=== PATIENT | male | born 1935 | race Caucasian/White ===

== ENCOUNTER 2024-08-29 12:02 | Inpatient (IN) | payer OTHER ==
[~2024-08-29] VITALS: Ht 175.3 cm; Wt 53.1 kg
[2024-08-29 12:31] LABS: BASOPHILS # (AUTO) 0.1 K/uL (0.0-0.2); BASOPHILS % (AUTO) 0.9 % (0.0-2.0); EOSINOPHILS # (AUTO) 0.2 K/uL (0.0-0.7); EOSINOPHILS % (AUTO) 2.2 % (0.0-6.0); HEMATOCRIT 29 % (39-51); HEMOGLOBIN 9.5 g/dL (13.5-17.5); LYMPHOCYTES # (AUTO) 2.6 K/uL (0.8-4.8); LYMPHOCYTES % (AUTO) 37.1 % (20.0-44.0); MEAN CORPUSCULAR HEMOGLOBIN 31 PG (26.0-33.0); MEAN CORPUSCULAR HGB CONC 33 g/dl (31.0-36.0); MEAN CORPUSCULAR VOLUME 92 fL (80-96); MONOCYTES # (AUTO) 0.6 K/uL (0.1-1.30); MONOCYTES % (AUTO) 8.2 % (2.0-12.0); NEUTROPHILS # (AUTO) 3.7 K/uL (1.8-8.9); NEUTROPHILS % (AUTO) 51.6 % (43.0-81.0); PLATELET COUNT (AUTO) 320 K/uL (150-450); RED BLOOD CELL COUNT(AUTO) 3.11 MIL/uL (4.5-6.0); RED CELL DISTRIBUTION WIDTH 16.4 % (11.5-15.0); WHITE BLOOD COUNT (AUTO) 7.1 K/uL (4.3-11.0)
[2024-08-29 12:55] LABS: CALCIUM, SERUM 7.9 mg/dL (8.5-10.1); CREATININE 0.7 mg/dL (0.6-1.3)
[2024-08-29 13:12] LABS: ALBUMIN 1.5 g/dL (3.4-5.0); BILIRUBIN,DIRECT 0.2 mg/dL (0.0-0.2); BILIRUBIN,TOTAL 0.5 mg/dL (0.2-1.0); TOTAL PROTEIN, SERUM 5.9 g/dL (6.4-8.2)
[2024-08-29] MEDS ORDERED: MAGN400O6 PO (13:33)
[2024-08-29] MEDS ORDERED: CALC-494 PO (13:33)
[2024-08-29] MEDS ORDERED: MELA3TAB41 PO (13:33)
[2024-08-29] MEDS ORDERED: NA P133E RC (13:33)
[2024-08-29] MEDS ORDERED: A/C/1TAB3 PO (13:33)
[2024-08-29] MEDS ORDERED: FLUT16SP BNOSTRILS (13:33)
[2024-08-29] MEDS ORDERED: SIMV-49 PO (13:33)
[2024-08-29] MEDS ORDERED: ACET-73 PO (13:33)
[2024-08-29] MEDS ORDERED: MIRT7.5T10 PO (13:33)
[2024-08-29] MEDS ORDERED: BISA10SU11 RC (13:33)
[2024-08-29] MEDS ORDERED: ASPI-1169 PO (13:33)
[2024-08-29] MEDS ORDERED: TRAM50TA2 PO (13:33)
[2024-08-29] MEDS ORDERED: ASCO500T10 PO (13:33)
[2024-08-29] MEDS ORDERED: ENOX40DI SQ (13:33)
[2024-08-29] MEDS ORDERED: SENN-261 PO (13:33)
[2024-08-29] MEDS ORDERED: ACET325T53 PO (13:33)
[2024-08-29] MEDS ORDERED: AMIN30LI27 PO (13:33)
[2024-08-29] MEDS ORDERED: CHOL200059 PO (13:33)
[2024-08-29 16:00] VITALS: BP 130/89; TEMP 97.3; O2SAT 95
[2024-08-29] MEDS: POTASSIUM CHLORIDE 20 MEQ TAB.PRT.SR PO SCH (16:11)
[2024-08-29] MEDS ORDERED: ONDANSETRON HCL/PF 4 MG/2 ML VIAL IVP PRN (16:30)
[2024-08-29] MEDS ORDERED: MAG HYDROX/AL HYDROX/SIMETH 30 ML UDC PO PRN (16:30)
[2024-08-29] MEDS ORDERED: MAGNESIUM HYDROXIDE 30 ML UDC PO PRN (16:30)
[2024-08-29] MEDS ORDERED: ACETAMINOPHEN 325 MG TABLET PO PRN (16:30)
[2024-08-29] MEDS ORDERED: MORPHINE SULFATE INJ 2 MG/ML DISP.SYRIN IV PRN (16:30)
[2024-08-29] MEDS ORDERED: NITROGLYCERIN 0.4 MG/TAB BOTTLE SL PRN (16:30)
[2024-08-29] MEDS: ASPIRIN EC 81 MG TABLET.DR PO SCH (16:38)
[2024-08-29] MEDS: ENOXAPARIN SODIUM 40 MG/0.4 ML DISP.SYRIN SQ SCH (16:38)
[2024-08-29 18:41] LABS: THYROID STIMULATING HORMONE 9.49 uIU/mL (0.358-3.74)
[2024-08-29 20:00] VITALS: BP 150/87; TEMP 97.5; O2SAT 95
[2024-08-29 20:34] VITALS: BP 150/87; TEMP 97.5; O2SAT 95
[2024-08-30] VITALS (8 sets, daily range): BP systolic 124–138; BP diastolic 70–81; TEMP 97–98.4; O2SAT 95–100
[2024-08-30] MEDS: PANTOPRAZOLE 40 MG TABLET.DR PO SCH (06:51)
[2024-08-30 07:16] LABS: BASOPHILS % (AUTO) 0.7 % (0.0-2.0); EOSINOPHILS # (AUTO) 0.2 K/uL (0.0-0.7); EOSINOPHILS % (AUTO) 3.6 % (0.0-6.0); HEMATOCRIT 24 % (39-51); HEMOGLOBIN 8.6 g/dL (13.5-17.5); LYMPHOCYTES # (AUTO) 1.7 K/uL (0.8-4.8); LYMPHOCYTES % (AUTO) 31.4 % (20.0-44.0); MEAN CORPUSCULAR HEMOGLOBIN 32 PG (26.0-33.0); MEAN CORPUSCULAR HGB CONC 35 g/dl (31.0-36.0); MEAN CORPUSCULAR VOLUME 92 fL (80-96); MONOCYTES # (AUTO) 0.5 K/uL (0.1-1.30); MONOCYTES % (AUTO) 9.8 % (2.0-12.0); NEUTROPHILS % (AUTO) 54.5 % (43.0-81.0); PLATELET COUNT (AUTO) 268 K/uL (150-450); RED BLOOD CELL COUNT(AUTO) 2.64 MIL/uL (4.5-6.0); RED CELL DISTRIBUTION WIDTH 16.3 % (11.5-15.0); WHITE BLOOD COUNT (AUTO) 5.5 K/uL (4.3-11.0)
[2024-08-30 09:08] LABS: CREATININE 0.6 mg/dL (0.6-1.3); MAGNESIUM 1.6 mg/dL (1.8-2.4); PHOSPHORUS 3.3 mg/dL (2.5-4.9); POTASSIUM 3.1 mmol/L (3.5-5.1)
[2024-08-30] MEDS: Magnesium 1GM/D5W 100ML PREMIX 100 ML IV SCH (10:15)
[2024-08-30 12:18] LABS: THYROID STIMULATING HORMONE 7.64 uIU/mL (0.358-3.74)
[2024-08-30] MEDS: POTASSIUM CHLORIDE 20 MEQ TAB.PRT.SR PO ONE (13:34)
[2024-08-31 08:00] VITALS: BP 119/84; TEMP 97.5; O2SAT 100
[2024-08-31] MEDS ORDERED: BISACODYL SUPP (10 MG) 10 MG/SUPP.RECT SUPP.RECT RC PRN (12:00)
[2024-08-31] MEDS ORDERED: NA PHOS,M-B/NA PHOS,DI-BA 1 EA ENEMA RC PRN (12:00)
[2024-08-31] MEDS ORDERED: HOME MED MISCELLANEOUS XX SCH (12:00)
[2024-08-31] MEDS: IV 1/2NS 1000 ML 1,000 ML IV PRN (13:29)
[2024-08-31] MEDS: SOD FERRIC GLUC 125 MG in IV NS 0.9% 100 ML IV SCH (14:37)
[2024-08-31] MEDS: Z GUARD REMEDY 4 OZ OINT TP PRN (14:59)
[2024-08-31 15:02] LABS: BASOPHILS % (AUTO) 0.5 % (0.0-2.0); EOSINOPHILS # (AUTO) 0.1 K/uL (0.0-0.7); EOSINOPHILS % (AUTO) 1.3 % (0.0-6.0); HEMATOCRIT 26 % (39-51); HEMOGLOBIN 8.8 g/dL (13.5-17.5); LYMPHOCYTES # (AUTO) 1.7 K/uL (0.8-4.8); LYMPHOCYTES % (AUTO) 22.8 % (20.0-44.0); MEAN CORPUSCULAR HEMOGLOBIN 31 PG (26.0-33.0); MEAN CORPUSCULAR HGB CONC 34 g/dl (31.0-36.0); MEAN CORPUSCULAR VOLUME 92 fL (80-96); MONOCYTES # (AUTO) 0.6 K/uL (0.1-1.30); MONOCYTES % (AUTO) 7.6 % (2.0-12.0); NEUTROPHILS # (AUTO) 5.2 K/uL (1.8-8.9); NEUTROPHILS % (AUTO) 67.8 % (43.0-81.0); PLATELET COUNT (AUTO) 317 K/uL (150-450); RED BLOOD CELL COUNT(AUTO) 2.85 MIL/uL (4.5-6.0); RED CELL DISTRIBUTION WIDTH 15.9 % (11.5-15.0); WHITE BLOOD COUNT (AUTO) 7.6 K/uL (4.3-11.0)
[2024-08-31] MEDS: TRAMADOL HCL 50 MG TABLET PO PRN (15:15)
[2024-08-31 15:17] LABS: BILIRUBIN,TOTAL 0.3 mg/dL (0.2-1.0); CALCIUM, SERUM 8.1 mg/dL (8.5-10.1); CREATININE 0.7 mg/dL (0.6-1.3); MAGNESIUM 1.7 mg/dL (1.8-2.4); PHOSPHORUS 2.5 mg/dL (2.5-4.9); POTASSIUM 4.8 mmol/L (3.5-5.1); TOTAL PROTEIN, SERUM 5.4 g/dL (6.4-8.2)
[2024-08-31 15:21] LABS: ALBUMIN 1.3 g/dL (3.4-5.0)
[2024-08-31 16:00] VITALS: BP 145/88; TEMP 97.7; O2SAT 100
[2024-08-31] MEDS: ASCORBIC ACID 500 MG TABLET PO SCH (18:33)
[2024-08-31] MEDS: PROSOURCE / PROSTAT (PYXIS) 30 ML UDC PO SCH (18:33)
[2024-08-31] MEDS: ASPIRIN 81 MG TAB.CHEW PO SCH (18:33)
[2024-08-31 20:00] VITALS: BP 121/66; TEMP 97.9; O2SAT 100
[2024-08-31] MEDS ORDERED: MINERAL OIL/PETROLATUM,WHITE 120 GM JAR TP PRN (20:00)
[2024-08-31] MEDS: SIMVASTATIN 20 MG TABLET PO SCH (21:29)
[2024-08-31] MEDS: MIRTAZAPINE 15 MG TABLET PO SCH (21:29)
[2024-08-31] MEDS: SENNOSIDES 8.6 MG TABLET PO SCH (21:29)
[2024-09-01] VITALS: BP 117/65; TEMP 97.9; O2SAT 100
[2024-09-01 04:00] VITALS: BP 138/79; TEMP 97.7; O2SAT 100
[2024-09-01 07:00] VITALS: BP 119/82; TEMP 97.5; O2SAT 100
[2024-09-01 07:38] LABS: BASOPHILS % (AUTO) 0.5 % (0.0-2.0); EOSINOPHILS # (AUTO) 0.2 K/uL (0.0-0.7); EOSINOPHILS % (AUTO) 3.2 % (0.0-6.0); HEMATOCRIT 27 % (39-51); HEMOGLOBIN 8.7 g/dL (13.5-17.5); LYMPHOCYTES # (AUTO) 2.2 K/uL (0.8-4.8); LYMPHOCYTES % (AUTO) 29.4 % (20.0-44.0); MEAN CORPUSCULAR HEMOGLOBIN 31 PG (26.0-33.0); MEAN CORPUSCULAR HGB CONC 33 g/dl (31.0-36.0); MEAN CORPUSCULAR VOLUME 94 fL (80-96); MONOCYTES # (AUTO) 0.6 K/uL (0.1-1.30); MONOCYTES % (AUTO) 7.9 % (2.0-12.0); NEUTROPHILS # (AUTO) 4.4 K/uL (1.8-8.9); PLATELET COUNT (AUTO) 277 K/uL (150-450); RED BLOOD CELL COUNT(AUTO) 2.85 MIL/uL (4.5-6.0); RED CELL DISTRIBUTION WIDTH 16.4 % (11.5-15.0); WHITE BLOOD COUNT (AUTO) 7.4 K/uL (4.3-11.0)
[2024-09-01 08:09] LABS: BILIRUBIN,TOTAL 0.3 mg/dL (0.2-1.0); CALCIUM, SERUM 7.7 mg/dL (8.5-10.1); CREATININE 0.6 mg/dL (0.6-1.3); MAGNESIUM 1.9 mg/dL (1.8-2.4); PHOSPHORUS 2.5 mg/dL (2.5-4.9); POTASSIUM 4.1 mmol/L (3.5-5.1); TOTAL PROTEIN, SERUM 5.4 g/dL (6.4-8.2)
[2024-09-01 08:20] LABS: ALBUMIN 1.2 g/dL (3.4-5.0)
[2024-09-01] MEDS: FLUTICASONE PROPIONATE 16 GM BOTTLE NS SCH (08:32)
[2024-09-01] MEDS: CALCIUM CARBONATE 500 MG TAB.CHEW PO SCH (08:33)
[2024-09-01] MEDS: CHOLECALCIFEROL 1,000 UNIT TABLET (VIT D3) PO SCH (08:34)
[2024-09-01 16:00] VITALS: BP 142/78; TEMP 97.9; O2SAT 100
[2024-09-01 20:00] VITALS: BP 112/67; TEMP 97.9; O2SAT 100
[2024-09-01 23:17] VITALS: BP 112/67; TEMP 97.9; O2SAT 100
[2024-09-02 07:00] VITALS: BP 140/84; TEMP 97.5; O2SAT 100
[2024-09-02 16:00] VITALS: BP 138/75; TEMP 97.7; O2SAT 100
== END 2024-09-02 18:00 | DRG 204 ==
LOC: ER 12:07 → TELE 15:00 → MED 09-01 06:24
PROVIDERS: ATTEND Nurse Practitioner Acute Care
DX: R07.81 Pleurodynia (principal); E43 Unspecified severe protein-calorie malnutrition; R64 Cachexia; Z68.1 Body mass index [BMI] 19.9 or less, adult; N17.9 Acute kidney failure, unspecified; D64.9 Anemia, unspecified; Z20.822 Contact with and (suspected) exposure to COVID-19; I10 Essential (primary) hypertension; I27.20 Pulmonary hypertension, unspecified; F39 Unspecified mood [affective] disorder; E78.5 Hyperlipidemia, unspecified; E83.42 Hypomagnesemia; Z96.641 Presence of right artificial hip joint; Z88.8 Allergy status to other drugs, medicaments and biological substances; R26.9 Unspecified abnormalities of gait and mobility; Z79.51 Long term (current) use of inhaled steroids; Z79.899 Other long term (current) drug therapy; Z79.01 Long term (current) use of anticoagulants; Z79.82 Long term (current) use of aspirin; E87.6 Hypokalemia; E88.09 Other disorders of plasma-protein metabolism, not elsewhere classified; Z86.79 Personal history of other diseases of the circulatory system; I70.0 Atherosclerosis of aorta; R60.9 Edema, unspecified; D63.8 Anemia in other chronic diseases classified elsewhere
CPT/HCPCS: 36415; 71045-TC; 80048-TC; 80053-TC; 80061-TC; 80076-TC; 82728-TC; 83540-TC; 83605-TC; 83735-TC; 83880; 84100-TC; 84439-TC; 84443-TC; 84484-TC; 85025-TC; 87040-TC; 93307-TC; 97110-TC; 97164; 97530-TC; 97535-TC; A4223; G0378; J1650; J2916; J3475; J3490; J7030; J7050

== ENCOUNTER 2024-09-08 11:47 | Inpatient (IN) | payer OTHER ==
[~2024-09-08] VITALS: Ht 182.9 cm; Wt 58.1 kg
[~2024-09-08 11:47] MED LIST: A/C/1TAB3 PO; ACET-73 PO; ACET325T53 PO; AMIN30LI27 PO; ASCO500T10 PO; ASPI-1169 PO; BISA10SU11 RC; CALC-494 PO; CHOL200059 PO; ENOX40DI SQ; FLUT16SP BNOSTRILS; MAGN400O6 PO; MELA3TAB41 PO; MIRT7.5T10 PO; NA P133E RC; SENN-261 PO; SIMV-49 PO; TRAM50TA2 PO
[2024-09-08 14:38] LABS: BASOPHILS % (AUTO) 0.8 % (0.0-2.0); EOSINOPHILS % (AUTO) 0.2 % (0.0-6.0); HEMATOCRIT 29 % (39-51); HEMOGLOBIN 9.6 g/dL (13.5-17.5); LYMPHOCYTES # (AUTO) 0.6 K/uL (0.8-4.8); LYMPHOCYTES % (AUTO) 14.1 % (20.0-44.0); MEAN CORPUSCULAR HEMOGLOBIN 31 PG (26.0-33.0); MEAN CORPUSCULAR HGB CONC 34 g/dl (31.0-36.0); MEAN CORPUSCULAR VOLUME 92 fL (80-96); MONOCYTES # (AUTO) 0.3 K/uL (0.1-1.30); MONOCYTES % (AUTO) 6.8 % (2.0-12.0); NEUTROPHILS # (AUTO) 3.5 K/uL (1.8-8.9); NEUTROPHILS % (AUTO) 78.1 % (43.0-81.0); PLATELET COUNT (AUTO) 284 K/uL (150-450); RED CELL DISTRIBUTION WIDTH 16.5 % (11.5-15.0); WHITE BLOOD COUNT (AUTO) 4.5 K/uL (4.3-11.0)
[2024-09-08 14:49] LABS: INR 1.09 (0.91-1.10); PARTIAL THROMBOPLASTIN TIME 26.2 SEC (24.3-34.3); PROTHROMBIN TIME 11.5 SECS (9.2-11.1)
[2024-09-08 14:50] LABS: CALCIUM, SERUM 7.9 mg/dL (8.5-10.1); CREATININE 0.6 mg/dL (0.6-1.3); POTASSIUM 2.9 mmol/L (3.5-5.1)
[2024-09-08] MEDS ORDERED: BOOST VHC PO (14:55)
[2024-09-08] MEDS ORDERED: MULT-213 PO (14:55)
[2024-09-08] MEDS ORDERED: NITR0.4T48 SL (14:55)
[2024-09-08] MEDS ORDERED: CHOL100043 PO (14:55)
[2024-09-08] MEDS ORDERED: LEVO25TA2 PO (14:55)
[2024-09-08] MEDS ORDERED: APIX5TAB PO (14:55)
[2024-09-08] MEDS ORDERED: PANT40TA2 PO (14:55)
[2024-09-08] MEDS ORDERED: PHEN26CR2 RC (14:55)
[2024-09-08 14:56] LABS: LACTIC ACID 1.1 mmol/L (0.4-2.0)
[2024-09-08 15:03] LABS: ALBUMIN 1.6 g/dL (3.4-5.0); BILIRUBIN,DIRECT 0.3 mg/dL (0.0-0.2); BILIRUBIN,TOTAL 0.5 mg/dL (0.2-1.0); TOTAL PROTEIN, SERUM 6.1 g/dL (6.4-8.2)
[2024-09-08] MEDS ORDERED: MAG HYDROX/AL HYDROX/SIMETH 30 ML UDC PO PRN (15:30)
[2024-09-08] MEDS ORDERED: Z GUARD REMEDY 4 OZ OINT TP PRN (15:30)
[2024-09-08] MEDS ORDERED: MAGNESIUM HYDROXIDE 30 ML UDC PO PRN (15:30)
[2024-09-08] MEDS ORDERED: ALBUTEROL FS 2.5 MG/0.5 ML VIAL.NEB NEB PRN (15:30)
[2024-09-08] MEDS ORDERED: IPRATROPIUM NEB FS 0.5 MG/2.5 ML AMPUL.NEB NEB PRN (15:30)
[2024-09-08 15:48] LABS: APPEARANCE,URINE CLEAR (CLEAR); BILIRUBIN,URINE NEGATIVE (NEGATIVE); BLOOD, URINE NEGATIVE Ery/uL (NEGATIVE); COLOR,URINE YELLOW (YELLOW); KETONES,URINE TRACE mg/dL (NEGATIVE); LEUKOCYTE ESTERASE ,URINE NEGATIVE (NEGATIVE); NITRITE, URINE NEGATIVE (NEGATIVE); PH,URINE 5.5 (5.0-8.0); PROTEIN,URINE NEGATIVE (NEGATIVE); UGLUCOSE NEGATIVE (NEGATIVE)
[2024-09-08 16:07] LABS: RBC,URINE 0-2 /HPF (0-2)
[2024-09-08 16:08] LABS: ADD URINE CULTURE YES; BACTERIA,URINE Moderate /HPF (None Seen); WBC,URINE 0-2 /HPF (0-3)
[2024-09-08 16:09] LABS: URIC ACID CRYSTALS,URINE Few /HPF (None Seen)
[2024-09-08] MEDS: IV NS 0.9% 1,000 ML BAG IV ONE (16:10)
[2024-09-08] MEDS: KETOROLAC TROMETHAMINE 15 MG/ML VIAL IV ONE (16:11)
[2024-09-08] MEDS: PIPERACILLIN /TAZOBACTAM 3.375 G in IV D5W 50 ML IV ONE (16:12)
[2024-09-08] MEDS: VANCOMYCIN 1 GM in IV D5W 250 ML IV ONE (16:50)
[2024-09-08] MEDS ORDERED: ACETAMINOPHEN 325 MG TABLET ONE (17:34)
[2024-09-08] MEDS: ACETAMINOPHEN 325 MG TABLET PO ONE (17:40)
[2024-09-08 22:00] VITALS: BP 99/60; TEMP 97.7; O2SAT 94
[2024-09-08] MEDS ORDERED: POTASSIUM CHLORIDE 20 MEQ TAB.PRT.SR PO ONE (22:00)
[2024-09-08] MEDS ORDERED: PIPERACI/TAZO 3.375GM/D5W 50ML PB IV ONE (22:01)
[2024-09-08] MEDS: methylPREDNISolone SOD SUCC 125 MG/2ML VIAL IV SCH (22:07)
[2024-09-08] MEDS: ZOSYN IVPB 3.375 G in IV D5W 50ml IV SCH (22:08)
[2024-09-08] MEDS: ENOXAPARIN SODIUM 40 MG/0.4 ML DISP.SYRIN SQ SCH (22:09)
[2024-09-08] MEDS ORDERED: POTASSIUM CHLORIDE 10 MEQ/50 ML PREMIXED IVPB FOR PERIPHERAL LINE IV ONE (22:30)
[2024-09-08] MEDS: POTASSIUM CL. PREMIX PERIPHER. 50 ML IV SCH (23:15)
[2024-09-09] VITALS: BP 120/70; TEMP 97.7; O2SAT 96
[2024-09-09] MEDS: VANCOMYCIN 1 GM /D5W 250 ML PB IV ONE (04:13)
[2024-09-09] MEDS: VANCOMYCIN HCL 1.25 GM in IV D5W 250 ML IV SCH (04:22)
[2024-09-09] MEDS ORDERED: PIPERACI/TAZO 3.375GM/D5W 50ML PB IV ONE (04:39)
[2024-09-09 05:14] VITALS: BP 117/73; TEMP 97.5; O2SAT 95
[2024-09-09 07:15] LABS: BASOPHILS % (AUTO) 0.4 % (0.0-2.0); HEMATOCRIT 26 % (39-51); HEMOGLOBIN 8.6 g/dL (13.5-17.5); LYMPHOCYTES # (AUTO) 0.6 K/uL (0.8-4.8); LYMPHOCYTES % (AUTO) 23.6 % (20.0-44.0); MEAN CORPUSCULAR HEMOGLOBIN 31 PG (26.0-33.0); MEAN CORPUSCULAR HGB CONC 33 g/dl (31.0-36.0); MEAN CORPUSCULAR VOLUME 95 fL (80-96); MONOCYTES # (AUTO) 0.1 K/uL (0.1-1.30); MONOCYTES % (AUTO) 5.2 % (2.0-12.0); NEUTROPHILS # (AUTO) 1.8 K/uL (1.8-8.9); NEUTROPHILS % (AUTO) 70.8 % (43.0-81.0); PLATELET COUNT (AUTO) 221 K/uL (150-450); RED BLOOD CELL COUNT(AUTO) 2.74 MIL/uL (4.5-6.0); RED CELL DISTRIBUTION WIDTH 16.6 % (11.5-15.0); WHITE BLOOD COUNT (AUTO) 2.5 K/uL (4.3-11.0)
[2024-09-09 07:20] LABS: CALCIUM, SERUM 7.4 mg/dL (8.5-10.1); CREATININE 0.6 mg/dL (0.6-1.3); MAGNESIUM 1.7 mg/dL (1.8-2.4); PHOSPHORUS 3.5 mg/dL (2.5-4.9); POTASSIUM 3.4 mmol/L (3.5-5.1)
[2024-09-09] MEDS: PANTOPRAZOLE 40 MG TABLET.DR PO SCH (07:55)
[2024-09-09 08:00] VITALS: BP 102/73; TEMP 97.6; O2SAT 93
[2024-09-09 12:01] VITALS: BP 126/71; TEMP 98.1; O2SAT 93
[2024-09-09] MEDS ORDERED: POTASSIUM CHLORIDE 20 MEQ TAB.PRT.SR PO ONE (13:00)
[2024-09-09] MEDS: POTASSIUM CHLORIDE 20 MEQ POWDER PACKET PO SCH (13:07)
[2024-09-09] MEDS: MAGNESIUM OXIDE 400 MG TABLET PO ONE (13:07)
[2024-09-09 16:00] VITALS: BP 118/83; TEMP 98.4; O2SAT 95
[2024-09-09] MEDS ORDERED: IOHEXOL-300 100 ML VIAL IV ONE (16:38)
[2024-09-09] MEDS ORDERED: CT SWABBABLE VALVE TRANS SET 1 EA INFUS.SET MC ONE (16:38)
[2024-09-09] MEDS ORDERED: IV NS 0.9% 250 ML IV ONE (16:38)
[2024-09-09 20:00] VITALS: BP 131/82; TEMP 98.2; O2SAT 95
[2024-09-10] VITALS: BP 145/79; TEMP 97.2; O2SAT 100
[2024-09-10] MEDS: ACETAMINOPHEN 325 MG TABLET PO PRN (03:30)
[2024-09-10 04:00] VITALS: BP 116/79; TEMP 97.3; O2SAT 100
[2024-09-10 04:44] LABS: CALCIUM, SERUM 7.7 mg/dL (8.5-10.1); CREATININE 0.6 mg/dL (0.6-1.3); MAGNESIUM 1.7 mg/dL (1.8-2.4); POTASSIUM 3.9 mmol/L (3.5-5.1)
[2024-09-10 08:36] VITALS: BP 112/74; TEMP 97.8; O2SAT 93
[2024-09-10] MEDS ORDERED: IOHEXOL-300 100 ML VIAL IV ONE (08:59)
[2024-09-10] MEDS ORDERED: IV NS 0.9% 250 ML IV ONE (08:59)
[2024-09-10] MEDS ORDERED: CT SWABBABLE VALVE TRANS SET 1 EA INFUS.SET MC ONE (08:59)
[2024-09-10] MEDS: ENSURE ENLIVE CHOC 237 ML CAN PO SCH (12:03)
[2024-09-10] MEDS: PROSOURCE / PROSTAT (PYXIS) 30 ML UDC GT SCH (12:03)
[2024-09-10] MEDS: MAGNESIUM OXIDE 400 MG TABLET PO ONE (12:24)
[2024-09-10 12:33] VITALS: BP 132/74; TEMP 97.8; O2SAT 93
[2024-09-10 16:00] VITALS: BP 116/70; O2SAT 95
[2024-09-10] MEDS: VANCOMYCIN 750 MG in IV D5W 250 ML IV SCH (17:02)
[2024-09-10] MEDS: ASPIRIN 325 MG TABLET PO ONE (21:01)
[2024-09-10] MEDS: MORPHINE SULFATE INJ 2 MG/ML DISP.SYRIN IVP ONE (21:02)
[2024-09-10 22:03] VITALS: BP 113/77; TEMP 97.6; O2SAT 99
[2024-09-10] MEDS: ZOLPIDEM TARTRATE 5 MG TABLET PO PRN (23:09)
[2024-09-11] VITALS (8 sets, daily range): BP systolic 109–135; BP diastolic 67–86; TEMP 96–98.7; O2SAT 99–100
[2024-09-11 04:16] LABS: CALCIUM, SERUM 7.7 mg/dL (8.5-10.1); CREATININE 0.6 mg/dL (0.6-1.3); MAGNESIUM 1.8 mg/dL (1.8-2.4); POTASSIUM 3.8 mmol/L (3.5-5.1)
[2024-09-11 07:09] LABS: BASOPHILS % (AUTO) 0.2 % (0.0-2.0); HEMATOCRIT 21 % (39-51); LYMPHOCYTES # (AUTO) 1.1 K/uL (0.8-4.8); LYMPHOCYTES % (AUTO) 20.4 % (20.0-44.0); MEAN CORPUSCULAR HEMOGLOBIN 32 PG (26.0-33.0); MEAN CORPUSCULAR HGB CONC 34 g/dl (31.0-36.0); MEAN CORPUSCULAR VOLUME 95 fL (80-96); MONOCYTES # (AUTO) 0.2 K/uL (0.1-1.30); NEUTROPHILS # (AUTO) 3.9 K/uL (1.8-8.9); NEUTROPHILS % (AUTO) 75.4 % (43.0-81.0); PLATELET COUNT (AUTO) 274 K/uL (150-450); RED BLOOD CELL COUNT(AUTO) 2.16 MIL/uL (4.5-6.0); RED CELL DISTRIBUTION WIDTH 16.9 % (11.5-15.0); WHITE BLOOD COUNT (AUTO) 5.2 K/uL (4.3-11.0)
[2024-09-11 07:13] LABS: HEMOGLOBIN 6.9 g/dL (13.5-17.5)
[2024-09-11] MEDS: LORAZEPAM 0.5 MG TABLET PO PRN (09:52)
[2024-09-11 10:28] LABS: LYMPHOCYTES % (MANUAL) 18 % (16-48); MONOCYTES % (MANUAL) 2 % (0-11.0); NEUTROPHILS % (MANUAL) 80 (42-76)
[2024-09-11 10:29] LABS: ANISOCYTOSIS 1+; PLATELET ESTIMATE ADEQUATE
[2024-09-11] MEDS: MORPHINE SULFATE INJ 2 MG/ML DISP.SYRIN IV PRN (20:49)
[2024-09-12] VITALS (9 sets, daily range): BP systolic 116–148; BP diastolic 68–92; TEMP 97.3–99.2; O2SAT 98–100
[2024-09-12] MEDS ORDERED: VANCOMYCIN 750 MG in IV D5W 250 ML IV SCH (08:00)
[2024-09-12 08:07] LABS: BASOPHILS % (AUTO) 0.2 % (0.0-2.0); LYMPHOCYTES # (AUTO) 0.8 K/uL (0.8-4.8); LYMPHOCYTES % (AUTO) 13.3 % (20.0-44.0); MEAN CORPUSCULAR HEMOGLOBIN 31 PG (26.0-33.0); MEAN CORPUSCULAR HGB CONC 34 g/dl (31.0-36.0); MEAN CORPUSCULAR VOLUME 90 fL (80-96); MONOCYTES # (AUTO) 0.4 K/uL (0.1-1.30); MONOCYTES % (AUTO) 6.1 % (2.0-12.0); NEUTROPHILS # (AUTO) 4.9 K/uL (1.8-8.9); NEUTROPHILS % (AUTO) 80.4 % (43.0-81.0); PLATELET COUNT (AUTO) 203 K/uL (150-450); RED BLOOD CELL COUNT(AUTO) 2.08 MIL/uL (4.5-6.0); RED CELL DISTRIBUTION WIDTH 17.6 % (11.5-15.0); WHITE BLOOD COUNT (AUTO) 6.1 K/uL (4.3-11.0)
[2024-09-12 09:05] LABS: HEMOGLOBIN 6.4 g/dL (13.5-17.5)
[2024-09-12 09:06] LABS: HEMATOCRIT 19 % (39-51)
[2024-09-12] MEDS: VANCOMYCIN 500 MG in IV D5W 100ml IV SCH (09:20)
[2024-09-12 09:30] LABS: CALCIUM, SERUM 8.1 mg/dL (8.5-10.1); CREATININE 0.6 mg/dL (0.6-1.3); POTASSIUM 3.8 mmol/L (3.5-5.1)
[2024-09-12 09:53] LABS: LYMPHOCYTES % (MANUAL) 7 % (16-48); NEUTROPHILS % (MANUAL) 93 (42-76); PLATELET ESTIMATE ADEQUATE
[2024-09-12 09:57] LABS: ANISOCYTOSIS 1+
[2024-09-12] MEDS: PANTOPRAZOLE 40 MG VIAL IV SCH (12:00)
[2024-09-12] MEDS: POLYVINYL ALCOHOL 15 ML BOTTLE EACHEYE SCH (15:54)
[2024-09-12] MEDS: LEVOTHYROXINE SODIUM 25 MCG TABLET PO SCH (15:55)
[2024-09-12 16:26] LABS: HEMOGLOBIN 7.5 g/dL (13.5-17.5)
[2024-09-13] VITALS (11 sets, daily range): BP systolic 132–150; BP diastolic 69–90; TEMP 96.5–98.4; O2SAT 92–100
[2024-09-13] MEDS: PIPERACILLIN /TAZOBACTAM 3.375 G in IV D5W 100 ML IV SCH (16:32)
[2024-09-13 17:29] LABS: BASOPHILS % (AUTO) 0.1 % (0.0-2.0); EOSINOPHILS % (AUTO) 0.1 % (0.0-6.0); LYMPHOCYTES # (AUTO) 0.6 K/uL (0.8-4.8); LYMPHOCYTES % (AUTO) 10.4 % (20.0-44.0); MEAN CORPUSCULAR HEMOGLOBIN 31 PG (26.0-33.0); MEAN CORPUSCULAR HGB CONC 36 g/dl (31.0-36.0); MEAN CORPUSCULAR VOLUME 87 fL (80-96); MONOCYTES # (AUTO) 0.3 K/uL (0.1-1.30); MONOCYTES % (AUTO) 4.6 % (2.0-12.0); NEUTROPHILS % (AUTO) 84.8 % (43.0-81.0); PLATELET COUNT (AUTO) 147 K/uL (150-450); RED BLOOD CELL COUNT(AUTO) 2.17 MIL/uL (4.5-6.0); RED CELL DISTRIBUTION WIDTH 16.9 % (11.5-15.0); WHITE BLOOD COUNT (AUTO) 5.9 K/uL (4.3-11.0)
[2024-09-13 17:54] LABS: CALCIUM, SERUM 7.7 mg/dL (8.5-10.1); CREATININE 0.7 mg/dL (0.6-1.3); MAGNESIUM 1.7 mg/dL (1.8-2.4); PHOSPHORUS 2.2 mg/dL (2.5-4.9); POTASSIUM 3.5 mmol/L (3.5-5.1)
[2024-09-13 18:14] LABS: HEMATOCRIT 19 % (39-51); HEMOGLOBIN 6.8 g/dL (13.5-17.5)
[2024-09-13 21:41] LABS: ANISOCYTOSIS 1+; BASOPHILS % (MANUAL) 0 % (0.0-2.0); EOSINOPHILS % (MANUAL) 0 % (0-4); LYMPHOCYTES % (MANUAL) 10 % (16-48); MONOCYTES % (MANUAL) 6 % (0-11.0); NEUTROPHILS % (MANUAL) 84 (42-76); PLATELET ESTIMATE DECREASED
[2024-09-14] VITALS (14 sets, daily range): BP systolic 85–156; BP diastolic 62–81; TEMP 97.3–98.4; O2SAT 93–100
[2024-09-14] MEDS: IPRATROPIUM NEB FS 0.5 MG/2.5 ML AMPUL.NEB NEB PRN (00:10)
[2024-09-14] MEDS: ACETYLCYSTEINE 10% SOLN 400 MG/4 ML VIAL NEB SCH (00:11)
[2024-09-14 07:02] LABS: CALCIUM, SERUM 7.8 mg/dL (8.5-10.1); CREATININE 0.5 mg/dL (0.6-1.3); PHOSPHORUS 2.6 mg/dL (2.5-4.9); POTASSIUM 3.2 mmol/L (3.5-5.1)
[2024-09-14] MEDS: POTASSIUM CL. PREMIX PERIPHER. 50 ML IV SCH (09:52)
[2024-09-14] MEDS ORDERED: diphenhydrAMINE HCL 50 MG/ML VIAL IV PRN (10:00)
[2024-09-14 12:07] LABS: BASOPHILS % (AUTO) 0.1 % (0.0-2.0); HEMATOCRIT 27 % (39-51); HEMOGLOBIN 9.1 g/dL (13.5-17.5); LYMPHOCYTES # (AUTO) 0.8 K/uL (0.8-4.8); LYMPHOCYTES % (AUTO) 12.3 % (20.0-44.0); MEAN CORPUSCULAR HEMOGLOBIN 31 PG (26.0-33.0); MEAN CORPUSCULAR HGB CONC 34 g/dl (31.0-36.0); MEAN CORPUSCULAR VOLUME 90 fL (80-96); MONOCYTES # (AUTO) 0.2 K/uL (0.1-1.30); MONOCYTES % (AUTO) 3.5 % (2.0-12.0); NEUTROPHILS # (AUTO) 5.2 K/uL (1.8-8.9); NEUTROPHILS % (AUTO) 84.1 % (43.0-81.0); PLATELET COUNT (AUTO) 152 K/uL (150-450); RED BLOOD CELL COUNT(AUTO) 2.97 MIL/uL (4.5-6.0); RED CELL DISTRIBUTION WIDTH 16.6 % (11.5-15.0); WHITE BLOOD COUNT (AUTO) 6.2 K/uL (4.3-11.0)
[2024-09-15] VITALS (9 sets, daily range): BP systolic 117–161; BP diastolic 67–93; TEMP 97–97.7; O2SAT 93–99
[2024-09-15] MEDS ORDERED: hydrALAZINE HCL IV 20 MG VIAL ONE (07:56)
[2024-09-15] MEDS ORDERED: hydrALAZINE HCL IV 20 MG VIAL IV PRN (08:00)
[2024-09-15] MEDS: ALBUTEROL HALF STRENGTH 1.25 MG/3 ML VIAL.NEB NEB PRN (08:43)
[2024-09-15] MEDS ORDERED: ENOX40DI SUBCUT (13:58)
[2024-09-15 16:21] LABS: BASOPHILS % (AUTO) 0.1 % (0.0-2.0); HEMATOCRIT 31 % (39-51); HEMOGLOBIN 10.5 g/dL (13.5-17.5); LYMPHOCYTES # (AUTO) 0.4 K/uL (0.8-4.8); LYMPHOCYTES % (AUTO) 3.6 % (20.0-44.0); MEAN CORPUSCULAR HEMOGLOBIN 30 PG (26.0-33.0); MEAN CORPUSCULAR HGB CONC 34 g/dl (31.0-36.0); MEAN CORPUSCULAR VOLUME 87 fL (80-96); MONOCYTES # (AUTO) 0.6 K/uL (0.1-1.30); MONOCYTES % (AUTO) 5.7 % (2.0-12.0); NEUTROPHILS # (AUTO) 9.9 K/uL (1.8-8.9); NEUTROPHILS % (AUTO) 90.6 % (43.0-81.0); PLATELET COUNT (AUTO) 211 K/uL (150-450); RED BLOOD CELL COUNT(AUTO) 3.53 MIL/uL (4.5-6.0); WHITE BLOOD COUNT (AUTO) 10.9 K/uL (4.3-11.0)
[2024-09-15 16:32] LABS: CALCIUM, SERUM 7.8 mg/dL (8.5-10.1); CREATININE 0.6 mg/dL (0.6-1.3); POTASSIUM 3.1 mmol/L (3.5-5.1)
[2024-09-15 16:38] LABS: MAGNESIUM 1.7 mg/dL (1.8-2.4)
[2024-09-15] MEDS: POTASSIUM CHLORIDE 20 MEQ POWDER PACKET PO SCH (16:42)
[2024-09-15] MEDS: K PHOS NEUTRAL 250 MG TABLET PO ONE (18:51)
[2024-09-15] MEDS: MAGNESIUM OXIDE 400 MG TABLET PO ONE (18:51)
[2024-09-15] MEDS: ONDANSETRON HCL/PF 4 MG/2 ML VIAL IVP PRN (20:45)
[2024-09-16 00:04] VITALS: O2SAT 96
[2024-09-16 04:33] VITALS: BP 162/90; TEMP 97; O2SAT 97
[2024-09-16 07:27] LABS: HEMATOCRIT 32 % (39-51); HEMOGLOBIN 10.9 g/dL (13.5-17.5); LYMPHOCYTES # (AUTO) 0.6 K/uL (0.8-4.8); LYMPHOCYTES % (AUTO) 7.5 % (20.0-44.0); MEAN CORPUSCULAR HEMOGLOBIN 30 PG (26.0-33.0); MEAN CORPUSCULAR HGB CONC 34 g/dl (31.0-36.0); MEAN CORPUSCULAR VOLUME 90 fL (80-96); MONOCYTES # (AUTO) 0.5 K/uL (0.1-1.30); MONOCYTES % (AUTO) 6.1 % (2.0-12.0); NEUTROPHILS # (AUTO) 6.8 K/uL (1.8-8.9); NEUTROPHILS % (AUTO) 86.4 % (43.0-81.0); PLATELET COUNT (AUTO) 196 K/uL (150-450); RED CELL DISTRIBUTION WIDTH 16.3 % (11.5-15.0); WHITE BLOOD COUNT (AUTO) 7.9 K/uL (4.3-11.0)
[2024-09-16 08:00] VITALS: O2SAT 93
[2024-09-16 08:15] VITALS: O2SAT 95
[2024-09-16 08:19] LABS: CALCIUM, SERUM 7.7 mg/dL (8.5-10.1); CREATININE 0.5 mg/dL (0.6-1.3); MAGNESIUM 1.9 mg/dL (1.8-2.4); PHOSPHORUS 2.2 mg/dL (2.5-4.9); POTASSIUM 3.8 mmol/L (3.5-5.1)
[2024-09-16] MEDS ORDERED: LEVO500T90 PO (14:59)
[2024-09-16] MEDS ORDERED: LEVOFLOXACIN (250MG) 250 MG TABLET PO SCH (15:00)
[2024-09-16 15:26] VITALS: O2SAT 95
[2024-09-16 15:41] VITALS: O2SAT 96
[2024-09-16] MEDS ORDERED: K PHOS NEUTRAL 250 MG TABLET PO ONE (16:30)
[2024-09-16] MEDS ORDERED: PANTOPRAZOLE 40 MG TABLET.DR PO SCH (21:00)
== END 2024-09-16 15:55 | DRG 377 ==
LOC: ER 11:55 → TELE1 20:11 → MEDSG1 09-15 14:03
PROVIDERS: ATTEND Nurse Practitioner Acute Care
PROC: 30233N1 Transfusion of Nonautologous Red Blood Cells into Peripheral Vein, Percutaneous Approach (ICD-10-PCS; principal; 2024-09-11)
PROC: 0DB68ZX Excision of Stomach, Via Natural or Artificial Opening Endoscopic, Diagnostic (ICD-10-PCS; 2024-09-15)
DX: K29.71 Gastritis, unspecified, with bleeding (principal); E43 Unspecified severe protein-calorie malnutrition; J18.9 Pneumonia, unspecified organism; R64 Cachexia; N39.0 Urinary tract infection, site not specified; Z68.1 Body mass index [BMI] 19.9 or less, adult; D68.8 Other specified coagulation defects; D62 Acute posthemorrhagic anemia; B34.9 Viral infection, unspecified; E88.09 Other disorders of plasma-protein metabolism, not elsewhere classified; B96.4 Proteus (mirabilis) (morganii) as the cause of diseases classified elsewhere; E78.5 Hyperlipidemia, unspecified; E83.42 Hypomagnesemia; E87.6 Hypokalemia; I10 Essential (primary) hypertension; I25.10 Atherosclerotic heart disease of native coronary artery without angina pectoris; Z20.822 Contact with and (suspected) exposure to COVID-19; R53.1 Weakness; R26.9 Unspecified abnormalities of gait and mobility; M62.50 Muscle wasting and atrophy, not elsewhere classified, unspecified site; Z96.641 Presence of right artificial hip joint; K56.41 Fecal impaction; T45.515A Adverse effect of anticoagulants, initial encounter; Y92.129 Unspecified place in nursing home as the place of occurrence of the external cause
CPT/HCPCS: 36415; 71045-TC; 80048-TC; 80076-TC; 80202-TC; 81001; 83605-TC; 83735-TC; 84100-TC; 84484-TC; 85025-TC; 85027-TC; 85730-TC; 86850-TC; 87040-TC; 87086-TC; 87186-TC; 94760-TC; 94762-TC; 94799-TC; 97110-TC; 97530-TC; A4223; G0378; J0360; J1650; J1885; J2270; J2405; J2470; J2543; J2919; J3370; J3371; J3480; J3490; J7030; J7040; J7050; J7060; P9016; Q9967